=== PATIENT | male | born 1970 | race Caucasian/White ===

== ENCOUNTER 2021-04-14 15:27 | Emergency (ER) | payer OTHER ==
[2021-04-14] MEDS ORDERED: DIPH,PERTUS(ACELL)TETVAC-LF 0.5 ML VIAL IM ONE (17:48)
[2021-04-14] MEDS ORDERED: KETOROLAC 15 MG/ML 1 ML VIAL IM STA (18:14)
--- NOTE | 2021-04-14 19:08 | XR ---
EXAMINATION TYPE: XR finger LT DATE OF EXAM: 04/14/2021 CLINICAL HISTORY: pain Second digit. TECHNIQUE: 3 views of the second digit are submitted. COMPARISON: None FINDINGS: No displaced fracture is seen with certainty. Joint spaces are well-preserved. Soft tissue swelling noted. Correlate for cellulitis. No evidence for osteomyelitis. IMPRESSION: No acute displaced fracture or dislocation.
--- NOTE | 2021-04-14 19:26 | ED ---
Wound/Laceration HPI - General Chief Complaint: Wound/Laceration Stated Complaint: [employer] [facility] sent over, Finger laceration Time Seen by Provider: 04/14/21 17:48 Source: patient, RN notes reviewed Mode of arrival: ambulatory Limitations: no limitations - History of Present Illness Initial Comments: Patient is a 50-year-old male that presents to the emergency room complaining of left index finger irritation and pain. He notes he was at work when he got metal slivers in his finger. He notes he tried Tylenol. He notes his been soaking in Epsom salts. Patient notes that he can emergency room for evaluation for any possible other foreign bodies. Patient denied any significant pain. He did have full range of motion of his finger. He is otherwise well-appearing. He denied chest pain first breath headache nausea vomiting diarrhea constipation fever fatigue chills. - Related Data Previous Rx's Medication Instructions Recorded Cephalexin [Keflex] 500 mg PO Q6HR #40 cap 04/14/21 Allergies Allergy/AdvReac Type Severity Reaction Status Date / Time No Known Allergies Allergy Verified 04/14/21 17:36 Review of Systems ROS Statement: Those systems with pertinent positive or pertinent negative responses have been documented in the HPI. ROS Other: All systems not noted in ROS Statement are negative. Past Medical History Past Medical History: No Reported History History of Any Multi-Drug Resistant Organisms: None Reported Past Surgical History: Cholecystectomy Additional Past Surgical History / Comment(s): EGD Past Psychological History: No Psychological Hx Reported Smoking Status: Vaper Past Alcohol Use History: None Reported Past Drug Use History: None Reported General Exam Limitations: no limitations General appearance: alert, in no apparent distress Head exam: Present: atraumatic, normocephalic, normal inspection Eye exam: Present: normal appearance, PERRL, EOMI. Absent: scleral icterus, conjunctival injection, periorbital swelling ENT exam: Present: normal exam, mucous membranes moist Neck exam: Present: normal inspection Respiratory exam: Present: normal lung sounds bilaterally. Absent: respiratory distress, wheezes, rales, rhonchi, stridor Cardiovascular Exam: Present: regular rate, normal rhythm, normal heart sounds. Absent: systolic murmur, diastolic murmur, rubs, gallop, clicks Extremities exam: Present: normal inspection, full ROM, normal capillary refill. Absent: tenderness, pedal edema, joint swelling, calf tenderness Neurological exam: Present: alert, oriented X3 Psychiatric exam: Present: normal affect, normal mood Skin exam: Present: warm, dry, intact, normal color, erythema (Left index finger consistent with cellulitis,). Absent: rash Course Vital Signs 04/14/21 17:24 Temperature 97.9 F Pulse Rate 85 Respiratory 19 Rate Blood Pressure 122/81 O2 Sat by Pulse 98 Oximetry Medical Decision Making - Medical Decision Making 50-year-old male complaining of left index pain and irritation. X-ray of the left index finger, 15 g of Toradol, tetanus vaccine updated. X-ray negative for any acute fractures dislocations or foreign bodies. Antibiotics sent to pharmacy and an orthopedic referral be given. Case discussed with Dr. Turpin. - Radiology Data Radiology results: report reviewed, image reviewed X-ray of the left finger: No acute displaced fracture dislocation. Correlate for cellulitis. Disposition Clinical Impression: Cellulitis Disposition: HOME SELF-CARE Condition: Stable Instructions (If sedation given, give patient instructions): Cellulitis (ED) Additional Instructions: Please return to the Emergency Department if symptoms worsen or any other concerns. Follow-up with primary care in 1-2 days. Take antibiotics as prescribed. Follow-up with orthopedics as needed. Prescriptions: Cephalexin [Keflex] 500 mg PO Q6HR #40 cap Is patient prescribed a controlled substance at d/c from ED?: No Referrals: Byron Robles MD [Primary Care Provider] - 1-2 days Jennifer Potts DO [Doctor of Osteopathic Medicine] - 1-2 days Time of Disposition: 19:26
[2021-04-14 19:40] VITALS: BP 118/82; PULSE 84; RESP 18; TEMP 98.3
== END 2021-04-14 19:40 | disposition home or self-care (01) ==
LOC: EC 15:27
DX: L03.012 Cellulitis of left finger (principal); F17.290 Nicotine dependence, other tobacco product, uncomplicated
CPT/HCPCS: 90715; 96372; 99283

== ENCOUNTER → 2022-01-16 | Outpatient (CLI) | payer OTHER | END | disposition home or self-care (01) | LOC: RADCTMAIN 08:09 | PROVIDERS: ATTEND Family Medicine | DX: R63.4 Abnormal weight loss (principal) ==

== ENCOUNTER → 2023-12-27 | Outpatient (CLI) | payer OTHER ==
--- NOTE | 2023-12-27 09:51 | US ---
EXAMINATION TYPE: US abdomen complete DATE OF EXAM: 12/27/2023 COMPARISON: NONE CLINICAL INDICATION: Male, 53 years old with history of D69.6 THROMBOCYTOPENIA; low platlet, no sympt oms, cholecystectomy TECHNIQUE: Multiple sonographic images of the abdomen are obtained. FINDINGS: EXAM MEASUREMENTS: Liver Length: 18.5 cm Gallbladder Wall: Surgically absent CBD: 0.8 cm Spleen: 14.1 cm Right Kidney: 10.9 x 5.9 x 6.3 cm Left Kidney: 11.9 x 4.9 x 6.5 cm Pancreas: not seen due to bowel gas Liver: slightly lobulated, upper limits of normal for size Gallbladder: Surgically absent CBD: wnl Spleen: enlarged Right Kidney: wnl Left Kidney: wnl Upper IVC: wnl Abd Aorta: mostly obscured by bowel gas The liver is homogenous and mildly enlarged for size. The intrahepatic portion of the IVC is within normal limits. The abdominal aorta is obscured by overlying bowel gas. Common bile duct is unremarkab le for post cholecystectomy. The visualized portions of the pancreas are homogenous. The spleen is mildly enlarged for size. Kidneys are symmetric and free of hydronephrosis. No renal lesions are se en. IMPRESSION: 1. No ultrasound evidence for acute process. 2. Mild hepatosplenomegaly. 3. Postcholecystectomy changes.
== END | disposition home or self-care (01) ==
LOC: RADUSWWP 07:50
PROVIDERS: ATTEND Internal Medicine Hematology & Oncology
DX: D69.6 Thrombocytopenia, unspecified
CPT/HCPCS: 76700